=== PATIENT | male | born 1995 | race Two or more races ===

== ENCOUNTER 2023-02-06 07:16 | Day surgery (SDC) | payer OTHER ==
[~2023-02-06] VITALS: Ht 172.7 cm; Wt 84.4 kg
[~2023-02-06 07:16] MED LIST: BENADR PO; PEPCID AC10 MG PO; PROTONI PO; ZYRTEC10 M3 PO
[2023-02-06] MEDS ORDERED: PERCOCET 5-3251 EACH PO (12:23)
== END 2023-02-06 14:50 | disposition home or self-care (01) ==
LOC: CIR.AMB 07:16
PROVIDERS: ATTEND Surgery
DX: K81.1 Chronic cholecystitis (principal); Z20.822 Contact with and (suspected) exposure to COVID-19